=== PATIENT | female | born 1975 | race African-American/Black ===

== ENCOUNTER → 2017-04-01 | Outpatient (CLI) | payer OTHER ==
[~2017-04-01] MED LIST: BACTRIM DS TABL1 TA1 PO; BACTRIM DS TABL1 TA2 PO; CIPRO PO; FLEXERIL10 M1 PO; HYDROCHLOROTHIA25 MG PO; IBUPROFEN800 MG PO; NAPROSYN500 MG PO; PHENERGAN25 MG PO
== END | disposition home or self-care (01) ==
LOC: CECH 12:58
DX: R00.0 Tachycardia, unspecified (principal); I10 Essential (primary) hypertension
CPT/HCPCS: 93306